=== PATIENT | female | born 1995 | race Caucasian/White ===

== ENCOUNTER 2022-01-19 18:00 | Emergency (ER) | payer OTHER ==
[2022-01-19] MEDS ORDERED: Acetaminophen/HYDROcodone 325-10 MG Tab PO ONE (18:48)
[2022-01-19] MEDS ORDERED: Take Home: Acetaminophen/HYDROcodone 325-5 MG, 5 Tab Pack PO ONE (19:51)
== END 2022-01-19 19:57 | disposition home or self-care (01) ==
LOC: VM.ED 18:00
DX: S52.591A Other fractures of lower end of right radius, initial encounter for closed fracture (principal); S52.691A Other fracture of lower end of right ulna, initial encounter for closed fracture; W01.0XXA Fall on same level from slipping, tripping and stumbling without subsequent striking against object, initial encounter
CPT/HCPCS: 25605; 73110-RT; 99283-25; A9270-GY